=== PATIENT | female | born 1985 | race Caucasian/White ===

== ENCOUNTER 2017-02-03 04:38 | Inpatient (IN) | payer MEDICAID ==
[~2017-02-03] VITALS: Ht 172.7 cm; Wt 110.0 kg
[2017-02-03] MEDS ORDERED: NEWBORN KIT ONE ×2 (04:46→05:55)
[2017-02-03] MEDS ORDERED: OXYTOCIN 30U/ 0.9% NaCL 500ML 500 ML ONE ×3 (04:47→14:43)
[2017-02-03] MEDS ORDERED: LIDOCAINE 1%, 20ML ONE ×2 (04:47→19:56)
[2017-02-03] MEDS ORDERED: OXYTOCIN 30U/ 0.9% NaCL 500ML 500 ML IV ONE (05:00)
[2017-02-03] MEDS ORDERED: FENTANYL PF 100 MCG/2ML IVPush PRN (05:00)
[2017-02-03] MEDS ORDERED: FENTANYL PF 100 MCG/2ML IV PRN (05:00)
[2017-02-03] MEDS ORDERED: TERBUTALINE 1 MG/ML, 1ML IVPush PRN (05:00)
[2017-02-03] MEDS ORDERED: OXYTOCIN 30U/ 0.9% NaCL 500ML 500 ML IV PRN (05:00)
[2017-02-03] MEDS ORDERED: CALCIUM CARBONATE 500 MG TAB.CHEW PO PRN (05:00)
[2017-02-03] MEDS ORDERED: ONDANSETRON 2MG/ML, 2ML IVPush PRN (05:00)
[2017-02-03] MEDS: LACTATED RINGERS 1,000 ML IV SCH ×3 (05:04→17:54)
[2017-02-03] MEDS ORDERED: MISOPROSTOL 25 MCG TABLET ONE ×2 (06:50→10:48)
[2017-02-03] MEDS: MISOPROSTOL 25 MCG TABLET SL PRN ×2 (06:50→11:03)
[2017-02-03] MEDS: D5%-LACTATED RINGERS 1,000 ML IV SCH ×2 (17:25→21:00)
[2017-02-03] MEDS ORDERED: FENTANYL/BUPIV./NS/PF 250 ML EPIDCONT ONE (19:43)
[2017-02-03] MEDS ORDERED: LIDOCAINE/PF 1.5%-EPI 1:200K, 30ML ONE (19:56)
[2017-02-03] MEDS ORDERED: BUPIVACAINE 0.25% ONE (19:56)
[2017-02-03] MEDS ORDERED: LACTATED RINGERS 1,000 ML IV SCH (20:28)
[2017-02-03] MEDS ORDERED: FENTANYL/BUPIV./NS/PF 250 ML EPIDCONT SCH (20:28)
[2017-02-03] MEDS ORDERED: LACTATED RINGERS 1,000 ML IVBOLUS PRN (20:30)
[2017-02-04] MEDS: OXYTOCIN 30U/ 0.9% NaCL 500ML 500 ML IV SCH ×2 (01:01→11:01)
[2017-02-04] MEDS ORDERED: HYDROcodone/APAP 5/325 TABLET PO PRN (01:30)
[2017-02-04] MEDS ORDERED: ONDANSETRON 2MG/ML, 2ML IV PRN (01:30)
[2017-02-04] MEDS ORDERED: METHYLERGONOVINE 0.2 MG/ML IM PRN (01:30)
[2017-02-04] MEDS ORDERED: MISOPROSTOL 200 MCG TABLET PO PRN (01:30)
[2017-02-04 03:15] VITALS: BP 120/56
[2017-02-04] MEDS: IBUPROFEN 600 MG TABLET PO PRN ×3 (04:13→18:40)
[2017-02-04 07:13] VITALS: BP 134/68
[2017-02-04] MEDS: PRENATAL VIT/IRON/FA 1 EACH TABLET PO SCH (08:48)
[2017-02-04] MEDS ORDERED: DOCUSATE 100 MG CAPSULE PO SCH (09:00)
[2017-02-04 12:00] VITALS: BP 124/74
[2017-02-04 20:00] VITALS: BP 121/74
[2017-02-04] MEDS: DOCUSATE 100 MG CAPSULE PO SCH (23:19)
[2017-02-05] VITALS: BP 119/75
[2017-02-05] MEDS: IBUPROFEN 600 MG TABLET PO PRN ×2 (03:29→11:58)
[2017-02-05 03:43] VITALS: BP 127/71
[2017-02-05] MEDS: LEVOTHYROXINE 150 MCG TABLET PO SCH (07:00)
[2017-02-05 07:20] VITALS: BP 107/60
[2017-02-05] MEDS: DOCUSATE 100 MG CAPSULE PO SCH (09:08)
[2017-02-05] MEDS: PRENATAL VIT/IRON/FA 1 EACH TABLET PO SCH (09:09)
[2017-02-05] MEDS: HYDROcodone/APAP 5/325 TABLET PO PRN (11:58)
[2017-02-05] MEDS: OXYTOCIN 30U/ 0.9% NaCL 500ML 500 ML IV SCH (19:06)
[2017-02-05 19:40] VITALS: BP 121/81
[2017-02-06] MEDS: DOCUSATE 100 MG CAPSULE PO SCH ×2 (00:17→09:35)
[2017-02-06] MEDS: IBUPROFEN 600 MG TABLET PO PRN ×3 (00:17→12:17)
[2017-02-06] MEDS: OXYTOCIN 30U/ 0.9% NaCL 500ML 500 ML IV SCH ×2 (03:01→13:01)
[2017-02-06] MEDS: LEVOTHYROXINE 150 MCG TABLET PO SCH (06:49)
[2017-02-06 07:15] VITALS: BP 122/71
[2017-02-06] MEDS: PRENATAL VIT/IRON/FA 1 EACH TABLET PO SCH (09:35)
[2017-02-06] MEDS ORDERED: DOCU-30 PO (10:45)
[2017-02-06] MEDS ORDERED: IBUP-1222 PO (10:45)
[2017-02-06] MEDS ORDERED: LEVO150T5 PO (10:46)
[2017-02-06] MEDS ORDERED: HYDR-3240 PO (10:46)
[2017-02-06] MEDS: HYDROcodone/APAP 5/325 TABLET PO PRN (12:01)
== END 2017-02-06 14:40 | disposition home or self-care (01) | DRG 775 ==
LOC: LDOP 04:38 → LDIP 04:53 → 2NW 02-04 02:41
PROVIDERS: ADMIT Student in an Organized Health Care Education/Training Program; ATTEND Student in an Organized Health Care Education/Training Program
PROC: 10E0XZZ Delivery of Products of Conception, External Approach (ICD-10-PCS; principal; 2017-02-04)
PROC: 0HQ9XZZ Repair Perineum Skin, External Approach (ICD-10-PCS; 2017-02-04)
PROC: 00HU33Z Insertion of Infusion Device into Spinal Canal, Percutaneous Approach (ICD-10-PCS; 2017-02-04)
PROC: 3E0R3CZ (ICD-10-PCS; 2017-02-04)
DX: O42.92 Full-term premature rupture of membranes, unspecified as to length of time between rupture and onset of labor (principal); O77.0 Labor and delivery complicated by meconium in amniotic fluid; O99.284 Endocrine, nutritional and metabolic diseases complicating childbirth; E89.0 Postprocedural hypothyroidism; O69.81X0 Labor and delivery complicated by cord around neck, without compression, not applicable or unspecified; O99.344 Other mental disorders complicating childbirth; F32.9 Major depressive disorder, single episode, unspecified; F41.9 Anxiety disorder, unspecified; O70.0 First degree perineal laceration during delivery; Z87.59 Personal history of other complications of pregnancy, childbirth and the puerperium; Z3A.38 38 weeks gestation of pregnancy; Z37.0 Single live birth
CPT/HCPCS: 36415; 85025; 86850; 86900; J3490; J2590; J3010; J7120; J7121

== ENCOUNTER → 2018-10-08 | Outpatient (CLI) | payer MEDICAID ==
[~2018-10-08] MED LIST: DOCU-131 PO; HYDR-3240 PO; IBUP-1222 PO; LEVO150T5 PO
== END | disposition home or self-care (01) ==
LOC: CFH 08:18
PROVIDERS: ATTEND Family Medicine
DX: Z12.31 Encounter for screening mammogram for malignant neoplasm of breast (principal); R11.0 Nausea
CPT/HCPCS: 76700; 77063; 77067

== ENCOUNTER → 2018-10-23 | Outpatient (CLI) | payer MEDICAID | END | disposition home or self-care (01) | LOC: CFH 13:49 | PROVIDERS: ATTEND Family Medicine | DX: R92.0 Mammographic microcalcification found on diagnostic imaging of breast (principal) | CPT/HCPCS: 77065 ==

== ENCOUNTER → 2018-10-31 | Outpatient (CLI) | payer MEDICAID ==
[~2018-10-31] MED LIST changes: +LIDOCAINE 1%, 20ML ONE; +LIDOCAINE 1%-EPI 1:100K, 30ML ONE; +SODIUM BICARBONATE 4.0%, 5ML ONE
== END | disposition home or self-care (01) ==
LOC: CFH 07:42
PROVIDERS: ATTEND Family Medicine
DX: N60.11 Diffuse cystic mastopathy of right breast (principal)
CPT/HCPCS: 19081; 77065; 88305; J3490

== ENCOUNTER → 2018-11-21 | Outpatient (CLI) | payer MEDICAID ==
[~2018-11-21] MED LIST changes: -LIDOCAINE 1%, 20ML ONE; -LIDOCAINE 1%-EPI 1:100K, 30ML ONE; +SINCALIDE (KINEVAC) 5 MCG ONE; -SODIUM BICARBONATE 4.0%, 5ML ONE
== END | disposition home or self-care (01) ==
LOC: PETCFH 08:13
PROVIDERS: ATTEND Family Medicine
DX: R11.0 Nausea (principal)
CPT/HCPCS: 78227; A9537; J2805